=== PATIENT | male | born 1980 | race Caucasian/White ===

== ENCOUNTER 2019-02-09 11:20 | Inpatient (IN) ==
--- OUTSIDE RECORDS SUMMARY | 2019-02-09 11:24 | External Medical Summary | Continuity of Care Document ---
:1980 Author Name Radha Man Address Unavailable Unavailable , Care Team Providers Name Role Phone Isidra RAND Unavailable [email or web address] PCP, NO Unavailable Unavailable Problems Active medical history not documented Allergies and Adverse Reactions Allergy history not documented Medications Medications not documented Procedures Procedures not documented Immunizations Immunizations not documented Plan of Treatment Planned Observations Planned Goals not documented Results No Known Results Results not documented Encounters Appointment; Esther Miner DO 11-Jul-2014 10:00 Encounter Diagnosis: Problem not documented
[2019-02-09 13:00] LABS: Basophils # (auto) 0.03 K/uL (0-0.2); Basophils % (auto) 0.5 %; Eosinophils % (auto) 1.6 %; Hematocrit (blood only) 42.9 % (42-52); Hemoglobin 15.2 g/dL (14.0-18.0); Immature Granulocytes # (auto) 0.06 K/uL (0.00-0.02); Lymphocytes # (auto) 1.38 K/uL (1.2-3.4); Lymphocytes % (auto) 21.9 %; Mean Corpuscular Hgb Conc 35.4 g/dL (32-36); Mean Corpuscular Volume 86.8 fL (80-100); Mean Platelet Volume 10.7 fL (7.4-10.4); Monocytes # (auto) 0.46 K/uL (0.11-0.59); Monocytes % (auto) 7.3 %; Neutrophils # (auto) 4.27 K/uL (1.4-6.5); Neutrophils % (auto) 67.7 %; Platelet Count 119 K/uL (130-400); RDW Coefficient of Variation 12.4 % (11.5-14.5); RDW Standard Deviation 39.7 fL (36.4-46.3); Red Blood Count 4.94 M/uL (4.7-6.1)
[2019-02-09 13:17] LABS: Albumin Level 3.9 gm/dl (3.4-5.0); BUN Creatinine Ratio 14.6 (10-20); Calcium 9.3 mg/dl (8.5-10.1); Est GFR (African American) 93.4; Est GFR (Non-African American) 80.6; Potassium 4.3 mmol/L (3.5-5.1)
[2019-02-09 13:23] LABS: Appearance Urine Clear (Clear); Bilirubin Urine Negative (Negative); Blood Urine Negative (Negative); Color Urine Yellow; Glucose Urine UA Negative (Negative); Ketones Urine Negative (Negative); Leukocyte Esterase Urine Negative (Negative); Nitrite Urine Negative (Negative); Protein Urine Negative (Negative); Specific Gravity Urine 1.023 (1.000-1.030); Urobilinogen Urine Negative (Negative); pH Urine 5.5 (4.5-7.5)
[2019-02-09 13:28] LABS: Albumin Globulin Ratio 1.1 (0.9-2); Bilirubin,Total 0.5 mg/dl (0.2-1); Globulin 3.5 gm/dl (2.5-4.0); Total Protein 7.4 gm/dl (6.4-8.2)
[2019-02-09 13:34] LABS: Acetaminophen < 2 ug/ml (10-30); Salicylate < 1.7 mg/dl (2.8-20)
[2019-02-09 13:54] LABS: Amphetamines+Metham, Urine Pos (Neg); Barbiturates, Urine Neg (Neg); Benzodiazepine, Urine Neg (Neg); Cocaine, Urine Neg (Neg); MDMA (Ecstacy), Urine Pos (Neg); Methadone, Urine Neg (Neg); Opiate, Urine Neg (Neg); Phencyclidine, Urine Neg (Neg)
--- NOTE | 2019-02-09 15:00 | Emergency Department Note ---
Entered by Vaishnavi Zheng acting as a scribe for Marcei West DO History of Present Illness General Chief complaint: Mental Health Evaluation Stated complaint: SUICIDAL Time Seen by Provider: 02/09/19 11:54 Source: patient History of Present Illness Provider complaint: Mental health evaluation Onset (ago): hour(s) Location: head Pain Consistency: + other (episode) Associated symptoms: + denies other symptoms (past attempts to hurt self, homicidal ideation) and + other (suicidal ideation) Treatments prior to arrival: none The patient is a 38 year old male who presents to the ED for an episode of a mental health evaluation that began a few hours ago. Per psychiatric case finishing machine adjuster, the patient has been having suicidal thoughts with a plan to buy a gun. The patient denies ever attempting to hurt himself in the past. The patient denies homicidal ideation. The patient states that he sees a psychiatrist and a therapist. The patient denies any recent changes in his medication. The patient states that he is not a smoker, but drinks alcohol on a social basis and is an everyday marijuana user. The patient denies any treatment prior to arrival. No prior inpatient psychiatric treatment. Home Medications Home Medications Medication Instructions Recorded Confirmed Type bupropion HCl 150 mg PO DAILY 02/09/19 02/09/19 History dextroamphetamine-amphetamine 20 mg PO BID 02/09/19 02/09/19 History [Adderall] fluoxetine 60 mg PO DAILY 02/09/19 02/09/19 History Allergies Allergy/AdvReac Type Severity Reaction Status Date / Time No Known Allergies Allergy Unverified 02/09/19 13:05 Past Med/Surg History Medical History Depression (Chronic) Social History Preferred Language: Montenegrin Communication Ability: Effective Beliefs That Will Affect Care: None Feels Safe at Home: Yes Smoking Status: Never smoker Hx Alcohol Use: Yes Hx Substance Use: Yes substance use type: marijuana Review of Systems See HPI for pertinent positives & negatives. and A total of 10 systems reviewed and were otherwise negative Physical Exam Vital Signs Vital Signs - 24 hr 02/09/19 11:32 02/09/19 13:59 Temperature 37.0 C Temperature Source Oral Sepsis Recent Fever Within 48 Hours No Sepsis New/Unexplained Change in Mental Status No Sepsis Action Taken by Nursing No Action Required Pulse Rate 103 H Pulse Rate [Finger] 89 Pulse Rhythm Regular Pulse Strength Normal Respiratory Rate 20 17 Respiratory Effort / Characteristics Non-Labored Spontaneous Respiratory Depth Normal Respiratory Pattern Regular Blood Pressure 151/101 H Blood Pressure [Left Arm] 142/90 H Blood Pressure Mean 117 Blood Pressure Mean [Left Arm] 107 Blood Pressure Position Sitting Pulse Oximetry 98 98 Oxygen Delivery Method Room Air Room Air GENERAL: alert, well appearing, well nourished, no distress, non-toxic EYE EXAM: normal conjunctiva, PERRL and EOM's grossly intact OROPHARYNX: no exudate, no erythema, lips, buccal mucosa, and tongue normal and mucous membranes are moist NECK: supple, no nuchal rigidity, no adenopathy, non-tender LUNGS: Clear to auscultation. Normal chest wall mechanics, no w/r/r HEART: no murmurs, S1 normal and S2 normal ABDOMEN: abdomen soft, non-tender, normo-active bowel sounds, no masses, no rebound or guarding. BACK: Back is symmetrical on inspection and there is no deformity, no midline tenderness, no CVA tenderness. SKIN: no rashes and no bruising UPPER EXTREMITIES: upper extremities are grossly normal. FROM, nml pulses b/l. LOWER EXTREMITIES: No pitting edema. FROM, nml pulses b/l. NEURO EXAM: Normal sensorium, cranial nerves II-XII grossly intact, normal speech, no gross weakness of arms, no gross weakness of legs. Course 1218: Past medical records reviewed. The patient was evaluated in room A5. A complete history and physical exam was performed. 1630: Patient seen and evaluated by psychiatric case finishing machine adjuster and referred to 3 S. 3 S. has evaluated the patient and will except there on the 201. 201 signed by me. Medical Decision Making Differential Diagnosis Differential diagnosis: Etiologies such as psychiatric disorder, infection, hypoglycemia, electrolyte abnormalities, cardiac sources, intracerebral event, toxicological process, neurologic disorder, as well as others were entertained. Medical Records Attestation: I reviewed the patient's medical records. Home Medications Current Medication List: was personally reviewed by me Laboratory Data Attestation: I reviewed the patient's lab results. Result diagrams: 02/09/19 12:41 02/09/19 12:41 Lab Results 02/09/19 02/09/19 02/09/19 Range/Units 12:41 12:41 12:41 WBC 6.30 (4.8-10.8) K/uL RBC 4.94 (4.7-6.1) M/uL Hgb 15.2 (14.0-18.0) g/dL Hct 42.9 (42-52) % MCV 86.8 (80-100) fL MCH 30.8 (25-34) pg MCHC 35.4 (32-36) g/dL RDW Std Deviation 39.7 (36.4-46.3) fL RDW Coeff of Gopi 12.4 (11.5-14.5) % Plt Count 119 L (130-400) K/uL MPV 10.7 H (7.4-10.4) fL Immature Gran % (Auto) 1.0 % Neut % (Auto) 67.7 % Lymph % (Auto) 21.9 % [place] % (Auto) 7.3 % Eos % (Auto) 1.6 % Baso % (Auto) 0.5 % Immature Gran # (Auto) 0.06 H (0.00-0.02) K/uL Neut # (Auto) 4.27 (1.4-6.5) K/uL Lymph # (Auto) 1.38 (1.2-3.4) K/uL [place] # (Auto) 0.46 (0.11-0.59) K/uL Eos # (Auto) 0.10 (0-0.5) K/uL Baso # (Auto) 0.03 (0-0.2) K/uL Sodium 140 (136-145) mmol/L Potassium 4.3 (3.5-5.1) mmol/L Chloride 106 (98-107) mmol/L Carbon Dioxide 27 (21-32) mmol/L Anion Gap 7.0 (3-11) BUN 17 (7-18) mg/dl Creatinine 1.14 (0.6-1.4) mg/dl Est Cr Clr Drug Dosing 86.0 ml/min Est GFR ( Amer) 93.4 Est GFR (Non-Af Amer) 80.6 BUN/Creatinine Ratio 14.6 (10-20) Glucose 90 (70-99) mg/dl Calcium 9.3 (8.5-10.1) mg/dl Total Bilirubin 0.5 (0.2-1) mg/dl AST 14 L (15-37) U/L ALT 25 (12-78) U/L Alkaline Phosphatase 95 (45-117) U/L Total Protein 7.4 (6.4-8.2) gm/dl Albumin 3.9 (3.4-5.0) gm/dl Globulin 3.5 (2.5-4.0) gm/dl Albumin/Globulin Ratio 1.1 (0.9-2) TSH 0.674 (0.300-4.500) uIu/ml Urine Color Urine Appearance (Clear) Urine pH (4.5-7.5) Ur Specific [place] (1.000-1.030) Urine Protein (Negative) Urine Glucose (UA) (Negative) Urine Ketones (Negative) Urine Blood (Negative) Urine Nitrite (Negative) Urine Bilirubin (Negative) Urine Urobilinogen (Negative) Ur Leukocyte Esterase (Negative) Salicylates < 1.7 L (2.8-20) mg/dl Urine Opiates Screen (Neg) Ur Methadone, Qual (Neg) Acetaminophen < 2 L (10-30) ug/ml Urine Barbiturates (Neg) Ur Phencyclidine (PCP) (Neg) U Amphetamin/Meth Scrn (Neg) MDMA (Ecstasy) Screen (Neg) U Benzodiazepines Scrn (Neg) Ur Cocaine Metabolite (Neg) U Marijuana (THC) Screen (Neg) Ethyl Alcohol mg/dL (0-3) mg/dl 02/09/19 02/09/19 02/09/19 Range/Units 12:41 13:15 13:15 WBC (4.8-10.8) K/uL RBC (4.7-6.1) M/uL Hgb (14.0-18.0) g/dL Hct (42-52) % MCV (80-100) fL MCH (25-34) pg MCHC (32-36) g/dL RDW Std Deviation (36.4-46.3) fL RDW Coeff of Gopi (11.5-14.5) % Plt Count (130-400) K/uL MPV (7.4-10.4) fL Immature Gran % (Auto) % Neut % (Auto) % Lymph % (Auto) % [place] % (Auto) % Eos % (Auto) % Baso % (Auto) % Immature Gran # (Auto) (0.00-0.02) K/uL Neut # (Auto) (1.4-6.5) K/uL Lymph # (Auto) (1.2-3.4) K/uL [place] # (Auto) (0.11-0.59) K/uL Eos # (Auto) (0-0.5) K/uL Baso # (Auto) (0-0.2) K/uL Sodium (136-145) mmol/L Potassium (3.5-5.1) mmol/L Chloride (98-107) mmol/L Carbon Dioxide (21-32) mmol/L Anion Gap (3-11) BUN (7-18) mg/dl Creatinine (0.6-1.4) mg/dl Est Cr Clr Drug Dosing ml/min Est GFR ( Amer) Est GFR (Non-Af Amer) BUN/Creatinine Ratio (10-20) Glucose (70-99) mg/dl Calcium (8.5-10.1) mg/dl Total Bilirubin (0.2-1) mg/dl AST (15-37) U/L ALT (12-78) U/L Alkaline Phosphatase (45-117) U/L Total Protein (6.4-8.2) gm/dl Albumin (3.4-5.0) gm/dl Globulin (2.5-4.0) gm/dl Albumin/Globulin Ratio (0.9-2) TSH (0.300-4.500) uIu/ml Urine Color Yellow Urine Appearance Clear (Clear) Urine pH 5.5 (4.5-7.5) Ur Specific [place] 1.023 (1.000-1.030) Urine Protein Negative (Negative) Urine Glucose (UA) Negative (Negative) Urine Ketones Negative (Negative) Urine Blood Negative (Negative) Urine Nitrite Negative (Negative) Urine Bilirubin Negative (Negative) Urine Urobilinogen Negative (Negative) Ur Leukocyte Esterase Negative (Negative) Salicylates (2.8-20) mg/dl Urine Opiates Screen Neg (Neg) Ur Methadone, Qual Neg (Neg) Acetaminophen (10-30) ug/ml Urine Barbiturates Neg (Neg) Ur Phencyclidine (PCP) Neg (Neg) U Amphetamin/Meth Scrn Pos H (Neg) MDMA (Ecstasy) Screen Pos H (Neg) U Benzodiazepines Scrn Neg (Neg) Ur Cocaine Metabolite Neg (Neg) U Marijuana (THC) Screen Pos H (Neg) Ethyl Alcohol mg/dL < 3.0 (0-3) mg/dl Blood Pressure Blood Pressure Findings: Elevated blood pressure Blood Pressure Disposition: Referred to patients primary care provider MDM Narrative Patient referred here by therapist after worsening depression and now suicidal ideation with plan. 201 signed. Patient's labs reassuring. No prior platelet level to compare to. Patient with mildly low platelets here today. No history of bleeding dyscrasia and I do not feel this is clinically significant with today's evaluation. I did discuss follow-up with family doctor. Patient's urine drug screen positive for marijuana which patient admits to, and the 2 other abnormalities are likely false positive secondary to patient's current m edications. Patient calm and cooperative throughout. Patient admitted to 3 S. Impression & Plan Suicidal ideation, Depression, Marijuana use, Thrombocytopenia Discharge Plan Visit Data Chief Complaint: Mental Health Evaluation Stated Complaint: SUICIDAL ED Provider: Marcie West Discharge Problem: Suicidal ideation, Depression, Marijuana use, Thrombocytopenia Discharge Problem: Depression Qualifiers: Depression Type: major depressive disorder Major depression recurrence: recurrent Active/Remission status: currently active Major depression episode severity: moderate Qualified Code(s): F33.1 - Major depressive disorder, recurrent, moderate The dakshaibe's documentation has been prepared under my direction and personally reviewed by me in its entirety. I confirm that the note above accurately reflects all work, treatment, procedures, and medical decision making performed by me.
[2019-02-09] MEDS ORDERED: SODIUM CHLORIDE 0.65% NA SOLN 45 ML (OCEAN) PRN (16:29)
[2019-02-09] MEDS ORDERED: BISMUTH SUBSALICYLATE PER ML OMNICELL CHARGE PO PRN (16:29)
[2019-02-09] MEDS ORDERED: ALUMINUM/MAGNESIUM SUSP 30 ML UDC PO PRN (16:29)
[2019-02-09] MEDS ORDERED: MAGNESIUM HYDROXIDE SUSP 30 ML UDC PO PRN (16:29)
[2019-02-09] MEDS ORDERED: ACETAMINOPHEN 325 MG TAB PO PRN (16:29)
[2019-02-10] MEDS ORDERED: FLUOXETINE HCL 20 MG CAP PO SCH (09:00)
[2019-02-10] MEDS: BuPROPion SR 150 MG TABCR PO SCH (10:03)
[2019-02-10] MEDS: AMPHETAMINE ASP/SULF/DEXTRAMPH 20 MG TAB PO SCH ×2 (13:22→13:26)
--- NOTE | 2019-02-10 14:30 | History & Physical ---
Date of Service February 10, 2019 Impression / Recommendations (1) Suicidal ideation: 02/10/19 -The patient reports that he is continuing to experience suicidal thoughts. He does not currently have suicidal intent. However, he notes that he does not feel that he is able to contract for safety outside of the hospital and continues to require the inpatient level of care for safety. -Suicide precautions. Present on Admission?: Yes (2) Depression: 02/10/19 -The patient reports that his depression is currently "no better or and no worse" than previously. His affect, however, is somewhat brighter than it was yesterday. -The patient has been referred for group, activity, and educational treatment and services, and he is being encouraged to actively processed the various psychosocial issues that are felt to be contributing to his emotional distress. -The patient has failed to respond to a number of treatments for depression, including individual therapy and chemotherapy. He has had genetic testing at that indicates that he may respond to standard dosages of almost all antidepressant medications, and a number of these medications have already been tried at standard dosages, or to the highest tolerated dosage. He is also not responded favorably to the application of adjunctive medications to his antidepressant regimen. A review of his medication history indicates that he has not yet been tried on a selective norepinephrine reuptake inhibitor such as venlafaxine. Currently, we will cross titrate fluoxetine (Prozac) with venlafaxine (Effexor). We will also continue bupropion XL 150 mg daily as an adjunct, and Adderall 20 mg twice a day for ADHD. -I coordinated the above treatment plan with the patient, who is in agreement. I explained that 1 of the reasons for hospitalization was to make medication changes in a safe location, given his active suicidality. The patient's response was to say "I do not want to be here, but I realize that it is necessary." -I talked to the patient today about ECT as a possible treatment, given his long-standing history of depression that has, to date, been largely unresponsive to multiple different interventions. Active/Remission status: currently active Depression Type: major depressive disorder Major depression episode severity: moderate Major depression recurrence: recurrent Qualified Code(s): F33.1 - Major depressive disorder, recurrent, moderate Present on Admission?: Yes (3) Thrombocytopenia: 02/10/19 -The patient's platelet count at admission was 119,000/mcL, with normal level s above 300,000/mcL. The patient does not have a known history of thrombocytopenia. This may be possibly a side effect of Prozac, and may also be a side effect of venlafaxine. -A review of systems does not reveal recent signs of bleeding or easy bruising. The plan will be to continue to monitor his platelet count periodically. Present on Admission?: Yes Inventory Assets Strengths: Supportive . Supportive friends. (His family of origin means to be supportive, but is unable to be supportive in a way that the patient finds helpful.) Intelligence. Motivated to treatment and recovery. Needs: Recovery from treatment resistant, recurrent major depression. Resolution of suicidal ideation with plan. Ability to reliably contract for safety in the community. Risk Factors Assessment Male: Yes : Yes Do You Have Access To A Gun?: No (But the patient knows where he would be able to purchase one.) Health Problems: No Mental Health Diagnoses: Yes Substance Use Disorders: No Previous Attempt: No Family History of Suicide: No Previous Psychiatric Hospitalization: No Hopelessness: No Smoker: No Protective Factors Assessment Anglican Beliefs: No : Yes Responsible for Young Children: No Employed: Yes ([employer]) Stable Relationships: Yes Supportive Family: Yes (The patient's is quite supportive. The patient's family of origin, while certainly well intended, is unable to be supportive in a way that the patient finds helpful.) Good Rapport with Provider: Yes Absence of Any Risk Factors Above: No Psychiatric History Identifying Data ASIA MADERA is a 38-year-old Male who currently lives in [place] with his and 2 teenaged stepchildren. He has a history of recurrent major depression and ADHD. The patient was admitted on 02/09/19 16:55 on a 201 voluntary agreement after he presented to my outpatient office and told me that he was having suicidal thoughts with a plan to either purchase a gun and shoot himself, or kill himself by asphyxiation with natural gas. Chief Complaint "Depression.". History of Present Illness The patient is a 38-year-old man with a long history of major depression, moderate to severe, without psychotic features and with only partial recovery between episodes. He has been followed by the undersigned outpatient therapy for several years and his depression has been very poorly responsive to a number of psychiatric medications which have included sertraline, fluoxetine, bupropion, fluoxetine, aripiprazole (as an adjunct) and, more recently, Adderall because of the patient's long-standing history of difficulty focusing, concentrating, avoiding unnecessary distraction, and tasks. The symptoms reportedly predated and have occurred independent of his symptoms of depression. In addition, the patient has been offered transcranial magnetic stimulation, but has declined it because of the considerable time commitment. 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 As the patient, himself, puts it, it is not clear if the patient's dissatisfaction with his life and his "quiet desperation" is a function of his depression, or if his depression is largely attributable to his general dissatisfaction with the circumstances in which he finds himself. The patient reportedly was fairly close to completing an undergraduate degree when he dropped out of college, but has not been motivated to return to college and finished his degree. He is dissatisfied with his job, but has thus far failed to apply for other jobs, nor has he been able to tell me that he has given serious thought to what other jobs he might prefer or consider. He often has a fantasy of leaving his and two adolescent stepchildren and moving into a "bachelor's apartment" which would allow him to return home from work and be solitary and free of additional responsibilities. Recently, the patient requested a medical excuse for a period of 2 weeks during which she was to have had a trial separation from his (without necessarily telling her that that was his intent). During the proposed separation, he was either to have visited his parents and a brother in [place], or visit friends and [place], and, again, his goal had been to see how he felt when removed from the strains of his home life and his job. He decided against visiting his parents because they tend to be hyper episcopalian and, each time he tries to tell them about how he is feeling they responded by advising him to find solutions through the Gnosticism Buddhism. In the end, he also decided not to visit his friends and, instead, spent the time at home, largely in bed and idle. Towards of the end of the 2 weeks, he was aware that he was feeling "no better and no worse," but also noted that what had previously been fleeting thoughts of suicide had become progressively more intense and intrusive. The final 2 days of his leave from work, he began to seriously contemplate suicide, and reported them to me, as above, shortly thereafter at the time of his previously scheduled outpatient appointment. He initially told me that his suicidal thoughts included thoughts of going to [employer], purchasing a rifle, and shooting himself in the [employer] parking lot --although he added that he would not actually shoot himself in the parking lot because he understood that that might have a traumatic effect on other people. He is also considered killing himself with natural gas. At the same time, the patient acknowledged some ambivalence regarding actual suicidal intent. However, of note, today he tells me that after he arrived in the emergency room yesterday afternoon (from my office) he said that "in a way" he regretted that he did not take the opportunity to simply kill himself without coming to the hospital, although, again, he stepped back from that statement and said "but I probably would have done that. I do want to try to get help and get better. Past Psychiatric History Previous Psych History: This is the patient's first psychiatric hospitalization. He has no history of actual suicidal intent. However, he has a very long history of recurrent major depression, with only partial improvement between episodes. There is no history of any psychotic features. Patient also has a history of symptoms of ADHD and is being treated with stimulant medication. He reports that stimulant medication has helped him concentrate, focus, and be able to complete tasks without becoming distracted or derailed by his depressed mood. He does not, however, feel that stimulant medications (in his case Adderall) has been particularly effective in helping to relieve his symptoms of depression. Current Psychiatric Diagnosis: Major Depressive Disorder. Outpatient Services: Currently in outpatient treatment with the undersigned at the offices of [facility] in [place]. He is seen approximately once a week. He is also in individual psychotherapy, also at [facility]. Previous Psych Admissions: None. This is the patient's first psychiatric hospitalization. Do You Have Access To A Gun?: No (But the patient knows where he would be able to purchase one.) History of Previous Suicide Attempt: No Describe Attempts in the Past: Ideations, no hx of attempts Past Medication Trials: The patient's current medications, at the time of his admission here, were Prozac 60 mg a day, Adderall 20 mg twice a day and bupropion XL 150 mg daily. (He had not responded to bupropion XL at 300 mg and noted some increased anxiety at that level.) In the past, the patient has taken sertraline, paroxetine, and several other antidepressant medications (no SNRI), as well as adjunctive medications including aripiprazole and risperidone, each without any marketed improvement in his depression. Past Head Trauma/Neuro History History of Concussion/Seizure: No Allergies Allergy/AdvReac Type Severity Reaction Status Date / Time No Known Allergies Allergy Unverified 02/09/19 13:05 Home Medications Home Medications Medication Instructions Recorded Confirmed Type bupropion HCl 150 mg PO DAILY 02/09/19 02/09/19 History dextroamphetamine-amphetamine 20 mg PO BID 02/09/19 02/09/19 History [Adderall] fluoxetine 60 mg PO DAILY 02/09/19 02/09/19 History Family History Family History of: None Family Mental Health History Comment: brother likely on the spectrum. The patient was raised as a Gnosticism in [place], as well as his . Both the patient and his have left the Gnosticism Buddhism, a circumstance that has caused a certain amount of difficulty with the patient's devoutly episcopalian parents. The patient expresses frustration and disappointment that he is unable to rely on his family of origin support as he faces depression and various other life difficulties, as noted above. This is because his parents reportedly have a single approach to each problem brought to them by others. That one single recommended solution always involves holiness and a return to adherent [facility]. Recently, the patient received an email that was purportedly written to him by his brother. The email spoke of how he, the brother, had been distressed and had found that turning to the [employer] had greatly helped him. However, of the email had signature comments that the patient knew to be characteristic of his mother, and he believes that his mother simply used the brother's email to send the patient the same message that she, herself, had sent him. Alcohol History Hx of Alcohol Use Over the Past 12 Months: Yes AUDIT Total Score: 1 Smoking Use Have You Smoked or Used Tobacco Products in the Last 30 Days: No Smoking Status: Never smoker Substance History Hx of Prescription Med Misuse Over the Past 12 Months: No Hx of Over the Counter Med Misuse Over the Past 12 Months: No Hx of Inhalent Misuse Over the Past 12 Months: No Hx of Organic Substance Use Over the Past 12 Months: Yes (occasionnal marijuana) Hx of Illegal Substances/Street Drug Use Over Past 12 Months: No Problems as a Result of Past Substance Use: None Identified Personal History Living Arrangements: Home Highest Grade Completed: High School Graduate Highest Grade Completed Comment: Working at [employer], 2 yrs. Was in college for a couple yrs, was close to associates degree in IT. Employment Status: Ceramic Tiler Employed Marital Status: Number Of Children: 2 (Stepchildren) Beliefs That Will Affect Care: None Current Legal Problems: No Hx Legal Problems: No Hx Traumatic Life Events: No Patient History Medical History Depression (Chronic) Social History Preferred Language: Hungarian Communication Ability: Effective Beliefs That Will Affect Care: None Feels Safe at Home: Yes Smoking Status: Never smoker Hx Alcohol Use: Yes Hx Substance Use: Yes substance use type: marijuana Review of Systems Review of Systems: All systems reviewed & are unremarkable except as noted in HPI & below The somatic history, review of system, and physical examination completed by Dr. Marcie West in the emergency department has been reviewed and is approved for purposes of medical clearance to the behavioral health unit. Physical Exam Psychiatric: Orientation: oriented x 3 Apperance: appropriately dressed, appropriately groomed and appeared stated age Eye Contact: + fair eye contact Motor Behavior: no abnormal motor movements Speech: normal rate/rhythm/volume of speech Affect: + depressed affect Mood: + depressed mood Thought Process: linear/logical thought process Thought Content: reality based without delusions The patient reports ongoing thoughts of suicide, but contracts for safety in the hospital and assures me that he will not make any attempts at self-harm here. Homicidal Thoughts: denies homicidal thoughts Hallucinations: no auditory hallucinations Cognition: recent memory grossly intact, remote memory grossly intact, attention grossly intact and language grossly intact Estimated Intelligence: + above average estimated intelligence Insight: + fair insight Judgement: + impaired judgement Vital Signs (Past 24 Hours): Last Vital Signs Temp 36.6 C 02/10/19 06:46 Pulse 81 02/10/19 06:46 Resp 18 02/10/19 06:46 BP 141/81 H 02/10/19 06:46 Pulse Ox 98 02/09/19 13:59 Results & Data Current Inpatient Medications Current Inpatient Medications: Current Inpatient Medications Acetaminophen (Tylenol) 650 mg PO Q4H PRN PRN Reason: Headache or Minor Fever Stop: 03/11/19 16:28 Al Hydrox/Mg Hydrox/Simethicone (Maalox) 30 ml PO Q4H PRN PRN Reason: GI Upset Stop: 03/11/19 16:28 Amphetamine/Dextroamphetamine (Adderall) 20 mg PO [id number] [facility] Stop: 02/24/19 06:59 Last Admin: 02/10/19 13:26 Dose: 20 mg Documented by: Bismuth Subsalicylate (Kaopectate) 15 ml PO PRN PRN PRN Reason: Loose Stool Stop: 03/11/19 16:28 Bupropion HCl (Wellbutrin-Sr) 150 mg PO QAM [facility] Stop: 03/12/19 08:59 Last Admin: 02/10/19 10:03 Dose: 150 mg Documented by: Fluoxetine HCl (Prozac) 40 mg PO DAILY [facility] Stop: 03/12/19 08:59 Last Admin: 02/10/19 10:03 Dose: 40 mg Documented by: Hydroxyzine HCl (Vistaril) 25 mg PO Q4H PRN PRN Reason: Anxiety Stop: 03/11/19 16:28 Hydroxyzine HCl (Vistaril) 50 mg PO HSZ PRN PRN Reason: Insomnia Stop: 03/11/19 16:28 Magnesium Hydroxide (Milk Of Magnesia) 30 ml PO DAILY PRN PRN Reason: Heartburn Stop: 03/11/19 16:28 Sodium Chloride ([place] Nasal) 1 - 2 sprays NA PRN PRN PRN Reason: Nasal Dryness/Congestion Stop: 03/11/19 16:28 CPT Code CPT Code Initial Hospital Care: [id number]
--- NOTE | 2019-02-11 08:49 | Psychiatric Progress Note ---
Date of Service February 11, 2019 Impression / Recommendations Impression 38-year-old male admitted voluntarily for inpatient psychiatric treatment upon recommendation from his outpatient psychiatrist, Dr. Stewart. Pt had disclosed worsening depression with accompanied SI and plan to purchase a firearm and end his life in the parking lot. Pt was willing for medication adjustments to target low mood and low energy. Fluoxetine is being tapered and venlafaxine ER was initiated. Pt was given a 75mg dose this morning, will continue to titrate as tolerated to reasonably therapeutic dosing. Pt remains on home doses of bupropion 150mg and Adderall 20mg BID as these have been somewhat effective. Pt participated in a family meeting with his this afternoon to review discharge planning. Given patient's long history of depression, highly lethal suicide plan, and clearly orchestrated ideas to end his life - ongoing inpatient psychiatric treatment is recommended until patient can adequately contract for safety; as he remains at high risk of harm to self if discharged prematurely. (1) Suicidal ideation: 02/10/19 -The patient reports that he is continuing to experience suicidal thoughts. He does not currently have suicidal intent. However, he notes that he does not feel that he is able to contract for safety outside of the hospital and continues to require the inpatient level of care for safety. -Suicide precautions. 02/11 - SI is ongoing, though mildly improved - Remains unable to contract for safety outside of the hospital setting (2) Depression: 02/10/19 -The patient reports that his depression is currently "no better or and no worse" than previously. His affect, however, is somewhat brighter than it was yesterday. -The patient has been referred for group, activity, and educational treatment and services, and he is being encouraged to actively processed the various psychosocial issues that are felt to be contributing to his emotional distress. -The patient has failed to respond to a number of treatments for depression, including individual therapy and chemotherapy. He has had genetic testing at that indicates that he may respond to standard dosages of almost all antidepressant medications, and a number of these medications have already been tried at standard dosages, or to the highest tolerated dosage. He is also not responded favorably to the application of adjunctive medications to his antidepressant regimen. A review of his medication history indicates that he has not yet been tried on a selective norepinephrine reuptake inhibitor such as venlafaxine. Currently, we will cross titrate fluoxetine (Prozac) with venlafaxine (Effexor). We will also continue bupropion XL 150 mg daily as an adjunct, and Adderall 20 mg twice a day for ADHD. -I coordinated the above treatment plan with the patient, who is in agreement. I explained that 1 of the reasons for hospitalization was to make medication changes in a safe location, given his active suicidality. The patient's response was to say "I do not want to be here, but I realize that it is necessary." -I talked to the patient today about ECT as a possible treatment, given his long-standing history of depression that has, to date, been largely unresponsive to multiple different interventions. 02/11 - Continue medication adjustments outlined above - Pt received 75mg of venlafaxine ER this morning, will continue to titrate as tolerate - Fluoxetine was discontinued after 20mg dose received this morning - Continue bupropion and Adderall as above - Family meeting with completed - Assist patient with recognition of "red flags" and development of a concrete safety plan (3) Thrombocytopenia: 02/10/19 -The patient's platelet count at admission was 119,000/mcL, with normal levels above 300,000/mcL. The patient does not have a known history of thrombocytopenia. This may be possibly a side effect of Prozac, and may also be a side effect of venlafaxine. -A review of systems does not reveal recent signs of bleeding or easy bruising. The plan will be to continue to monitor his platelet count periodically. Inventory Assets Strengths: Supportive . Supportive friends. (His family of origin means to be supportive, but is unable to be supportive in a way that the patient finds helpful.) Intelligence. Motivated to treatment and recovery. Needs: Recovery from treatment resistant, recurrent major depression. Resolution of suicidal ideation with plan. Ability to reliably contract for safety in the community. Risk Factors Assessment Male: Yes : Yes Do You Have Access To A Gun?: No (But the patient knows where he would be able to purchase one.) Health Problems: No Mental Health Diagnoses: Yes Substance Use Disorders: No Previous Attempt: No Family History of Suicide: No Previous Psychiatric Hospitalization: No Hopelessness: No Smoker: No Protective Factors Assessment Sabianist Beliefs: No : Yes Responsible for Young Children: No Employed: Yes ([employer]) Stable Relationships: Yes Supportive Family: Yes (The patient's is quite supportive. The patient's family of origin, while certainly well intended, is unable to be supportive in a way that the patient finds helpful.) Good Rapport with Provider: Yes Absence of Any Risk Factors Above: No Interval History Identifying Information ASIA MADERA is a 38-year-old Male who currently lives in [place] with his and 2 teenaged stepchildren. He has a history of recurrent major depression and ADHD. The patient was admitted on 02/09/19 16:55 on a 201 voluntary agreement after he presented to my outpatient office and told me that he was having suicidal thoughts with a plan to either purchase a gun and shoot himself, or kill himself by asphyxiation with natural gas. Chief Complaint "No, things are fine. I feel like it's just about the same, no big difference. But I've also been depressed for a long time." Review of Systems Notes Constitutional: denied Cardiovascular: denied Respiratory: denied Gastrointestinal: denied Neurological: denied Psychiatric: denies symptoms other than stated above Total of at least 10 systems reviewed, pertinent positives as above and in HPI. Sleep Information Total Hours of Sleep: 6.25 Sleep Comments: requested and was provided with ear plugs to help decrease his roommates loud snoring sounds Meal Information Percent Meal Consumed - Breakfast: 100 Percent Meal Consumed - Lunch: 50 Percent Meal Consumed - Dinner: 100 Subjective Subjective Patient was seen & assessed and interval progress reviewed during report with nursing and social work. Staff reports the patient received a visit from his last evening, they are scheduled for a family meeting this afternoon. He has continued to report depressed mood and low energy. Pt was seen today to assess progress since admission. Pt states he is doing well, but does not feel he has noticed any significant changes in mood, SI, or changes in stressors. Pt does admit to feeling he is "out of the spiral I was in", but continues to endorse SI and low mood. Motivation remains an issue for him, but he states this has been building up for years. Pt feels his family meeting was "good", and states he felt it was beneficial for his to receive a "clearer picture" of his day-to-day struggles. Pt denies any significant side effects from medication adjustments. He denies other needs or concerns at this time. Physical Exam Psychiatric Orientation: alert, oriented x 3 and cooperative Apperance: appropriately dressed (casually, in t-shirt and pajama pants) and appropriately groomed Wearing corrective lenses, adequate hygiene Eye Contact: good eye contact Motor Behavior: steady gait and station and no abnormal motor movements Speech: normal rate/rhythm/volume of speech Affect: + depressed affect Mood: + depressed mood "I feel I'm out of the spiral, but still very depressed" Thought Process: goal directed thought process and clear/coherent thought process Thought Content: reality based without delusions, + hopelessness and + worthlessness Suicidal Thoughts: + reports suicidal thoughts (persistent, but mildly less severe) Homicidal Thoughts: denies homicidal thoughts Hallucinations: no auditory hallucinations and no visual hallucinations Cognition: remote memory grossly intact, attention grossly intact and language grossly intact Estimated Intelligence: consistent with education level Insight: + fair insight Judgement: + fair judgement Vital Signs (Past 24 Hours) Last Vital Signs Temp 36.8 C 02/11/19 06:30 Pulse 89 02/11/19 06:30 Resp 18 02/11/19 06:30 BP 141/77 H 02/11/19 06:30 Pulse Ox 98 02/09/19 13:59 Results & Data Current Inpatient Medications Current Inpatient Medications: Current Inpatient Medications Acetaminophen (Tylenol) 650 mg PO Q4H PRN PRN Reason: Headache or Minor Fever Stop: 03/11/19 16:28 Al Hydrox/Mg Hydrox/Simethicone (Maalox) 30 ml PO Q4H PRN PRN Reason: GI Upset Stop: 03/11/19 16:28 Amphetamine/Dextroamphetamine (Adderall) 20 mg PO [id number] [facility] Stop: 02/24/19 06:59 Last Admin: 02/10/19 13:26 Dose: 20 mg Documented by: Bismuth Subsalicylate (Kaopectate) 15 ml PO PRN PRN PRN Reason: Loose Stool Stop: 03/11/19 16:28 Bupropion HCl (Wellbutrin-Sr) 150 mg PO QAM [facility] Stop: 03/12/19 08:59 Last Admin: 02/10/19 10:03 Dose: 150 mg Documented by: Fluoxetine HCl (Prozac) 20 mg PO QAM [facility] Stop: 02/11/19 09:01 Hydroxyzine HCl (Vistaril) 25 mg PO Q4H PRN PRN Reason: Anxiety Stop: 03/11/19 16:28 Hydroxyzine HCl (Vistaril) 50 mg PO HSZ PRN PRN Reason: Insomnia Stop: 03/11/19 16:28 Magnesium Hydroxide (Milk Of Magnesia) 30 ml PO DAILY PRN PRN Reason: Heartburn Stop: 03/11/19 16:28 Sodium Chloride ([place] Nasal) 1 - 2 sprays NA PRN PRN PRN Reason: Nasal Dryness/Congestion Stop: 03/11/19 16:28 Venlafaxine HCl (Effexor Extended Release) 37.5 mg PO QAM [facility] Stop: 02/11/19 09:01 Venlafaxine HCl (Effexor Extended Release) 75 mg PO QAM [facility] Stop: 03/14/19 08:59 Post Discharge Appointments Primary Care Physician Name Of Family Doctor: none Therapist Name of Therapist: Mary Ayannah, Wednesday 5pm, Image Editor Name of Image Editor: Denies CPT Code CPT Code 15012 (1) Depression Active/Remission status: currently active Depression Type: major depressive disorder Major depression episode severity: moderate Major depression recurrence: recurrent Qualified Code(s): F33.1 - Major depressive disorder, recurrent, moderate
[2019-02-11] MEDS ORDERED: VENLAFAXINE HCL XR 37.5 MG CAPXR PO SCH (09:00)
[2019-02-11] MEDS ORDERED: FLUOXETINE HCL 20 MG CAP PO SCH (09:00)
[2019-02-11] MEDS: AMPHETAMINE ASP/SULF/DEXTRAMPH 20 MG TAB PO SCH ×2 (09:30→14:55)
[2019-02-11] MEDS: BuPROPion SR 150 MG TABCR PO SCH (09:31)
--- NOTE | 2019-02-12 07:47 | Psychiatric Progress Note ---
Date of Service February 12, 2019 Impression / Recommendations Impression 38-year-old male admitted voluntarily for inpatient psychiatric treatment upon recommendation from his outpatient psychiatrist, Dr. Stewart. Pt had disclosed worsening depression with accompanied SI and plan to purchase a firearm and end his life in the parking lot. Pt was willing for medication adjustments to target low mood and low energy. Venlafaxine ER was titrated to a total dose of 150 mg starting today. Pt remains on home doses of bupropion 150mg and Adderall 20mg BID as these have been somewhat effective. Family meeting held with yesterday. Patient still requires an adequate safety plan and consideration of steps following discharge to avoid decompensation of mood and return of suicidal ideation. Given patient's long history of depression, highly lethal suicide plan, and clearly orchestrated ideas to end his life - ongoing inpatient psychiatric treatment is recommended until patient can adequately contract for safety; as he remains at high risk of harm to self if discharged prematurely. Patient does not yet feel that he can maintain safety outside of the hospital setting. (1) Suicidal ideation: 02/10/19 -The patient reports that he is continuing to experience suicidal thoughts. He does not currently have suicidal intent. However, he notes that he does not feel that he is able to contract for safety outside of the hospital and co ntinues to require the inpatient level of care for safety. -Suicide precautions. 02/11 - SI is ongoing, though mildly improved - Remains unable to contract for safety outside of the hospital setting 02/12 - No longer "constant" SI, but does not yet feel he would be able to maintain safety outside of the hospital setting (2) Depression: 02/10/19 -The patient reports that his depression is currently "no better or and no worse" than previously. His affect, however, is somewhat brighter than it was yesterday. -The patient has been referred for group, activity, and educational treatment and services, and he is being encouraged to actively processed the various psychosocial issues that are felt to be contributing to his emotional distress. -The patient has failed to respond to a number of treatments for depression, including individual therapy and chemotherapy. He has had genetic testing at that indicates that he may respond to standard dosages of almost all antidepressant medications, and a number of these medications have already been tried at standard dosages, or to the highest tolerated dosage. He is also not responded favorably to the application of adjunctive medications to his antidepressant regimen. A review of his medication history indicates that he has not yet been tried on a selective norepinephrine reuptake inhibitor such as venlafaxine. Currently, we will cross titrate fluoxetine (Prozac) with venlafaxine (Effexor). We will also continue bupropion XL 150 mg daily as an adjunct, and Adderall 20 mg twice a day for ADHD. -I coordinated the above treatment plan with the patient, who is in agreement. I explained that 1 of the reasons for hospitalization was to make medication changes in a safe location, given his active suicidality. The patient's response was to say "I do not want to be here, but I realize that it is necessary." -I talked to the patient today about ECT as a possible treatment, given his long-standing history of depression that has, to date, been largely unresponsive to multiple different interventions. 02/11 - Continue medication adjustments outlined above - Pt received 75mg of venlafaxine ER this morning, will continue to titrate as tolerate - Fluoxetine was discontinued after 20mg dose received this morning - Continue bupropion and Adderall as above - Family meeting with completed - Assist patient with recognition of "red flags" and development of a concrete safety plan 02/12 - Pt to receive an additional 75mg of venlafaxine this afternoon, will order 150mg dosing for tomorrow morning - Continue bupropion and Adderall as above - Pt still needs to work on developing a safety plan and ways to improve structure and routine day-to-day (3) Thrombocytopenia: 02/10/19 -The patient's platelet count at admission was 119,000/mcL, with normal levels above 300,000/mcL. The patient does not have a known history of thro mbocytopenia. This may be possibly a side effect of Prozac, and may also be a side effect of venlafaxine. -A review of systems does not reveal recent signs of bleeding or easy bruising. The plan will be to continue to monitor his platelet count periodically. Inventory Assets Strengths: Supportive . Supportive friends. (His family of origin means to be supportive, but is unable to be supportive in a way that the patient finds helpful.) Intelligence. Motivated to treatment and recovery. Needs: Recovery from treatment resistant, recurrent major depression. Resolution of suicidal ideation with plan. Ability to reliably contract for safety in the community. Risk Factors Assessment Male: Yes : Yes Do You Have Access To A Gun?: No (But the patient knows where he would be able to purchase one.) Health Problems: No Mental Health Diagnoses: Yes Substance Use Disorders: No Previous Attempt: No Family History of Suicide: No Previous Psychiatric Hospitalization: No Hopelessness: No Smoker: No Protective Factors Assessment Shinto Beliefs: No : Yes Responsible for Young Children: No Employed: Yes ([employer]) Stable Relationships: Yes Supportive Family: Yes (The patient's is quite supportive. The patient's family of origin, while certainly well intended, is unable to be supportive in a way that the patient finds helpful.) Good Rapport with Provider: Yes Absence of Any Risk Factors Above: No Interval History Identifying Information ASIA MADERA is a 38-year-old Male who currently lives in [place] with his and 2 teenaged stepchildren. He has a history of recurrent major depression and ADHD. The patient was admitted on 02/09/19 16:55 on a 201 volu ntary agreement after he presented to my outpatient office and told me that he was having suicidal thoughts with a plan to either purchase a gun and shoot himself, or kill himself by asphyxiation with natural gas. Chief Complaint "I feel better. Just better generally." Review of Systems Notes Constitutional: denied Cardiovascular: denied Respiratory: denied Gastrointestinal: denied Neurological: denied Psychiatric: denies symptoms other than stated above Total of at least 10 systems reviewed, pertinent positives as above and in HPI. Sleep Information Total Hours of Sleep: 5.5 Sleep Comments: requested and was provided with ear plugs to help decrease his roommates loud snoring sounds Meal Information Percent Meal Consumed - Breakfast: 50 Percent Meal Consumed - Lunch: 100 Percent Meal Consumed - Dinner: 50 Subjective Subjective Patient was seen & assessed and interval progress reviewed during report with nursing and social work. Staff reports patient had a meeting with his yesterday in which they were able to discuss some situations possibly contributing to patient's ongoing depression. It was discovered that patient is currently on probation at work, and does not feel fulfilled by his job. Patient was seen today to assess progress since admission. He reports feeling "better" in general, but has some difficulty providing specific areas in which she has noticed improvement. After some thought, patient is able to verbalize that he feels "more positive" and that "I am no longer constantly thinking about killing myself." Patient does admit to ongoing suicidal ideation, but feels that it is "invasive but manageable." Patient uses this description to describe his "normal" suicidal ideation as well. Patient verbalizes willingness for ongoing medication adjustments to target mood. He reports a specific goal today to work on his safety plan. At this time, patient states "I could maybe be safe to go home, my concern is how long will that last. I could see myself spiraling very quickly." Patient does not feel that he is yet at a point that he is able to contract for safety outside of the hospital setting. He denies other specific needs or concerns today, including effects from medication adjustments. Physical Exam Psychiatric Orientation: alert, oriented x 3 and cooperative Apperance: appropriately dressed (Casually wearing a T-shirt and pajama bottoms) and appropriately groomed Eye Contact: good eye contact Motor Behavior: steady gait and station and no abnormal motor movements Speech: normal rate/rhythm/volume of speech Affect: + depressed affect (Mildly improved from yesterday) Mood: + depressed mood ("May be more positive, but my mood is not necessarily better") Thought Process: goal directed thought process and clear/coherent thought process Thought Content: + hopelessness and + worthlessness Suicidal Thoughts: + reports suicidal thoughts (No longer constant, but still persistdescribed as "invasive but manageable) Homicidal Thoughts: denies homicidal thoughts Hallucinations: no auditory hallucinations and no visual hallucinations Cognition: remote memory grossly intact, attention grossly intact and language grossly intact Estimated Intelligence: consistent with education level Insight: + fair insight Judgement: + fair judgement Vital Signs (Past 24 Hours) Last Vital Signs Temp 36.7 C 02/12/19 06:49 Pulse 102 H 02/12/19 06:50 Resp 16 02/12/19 06:49 BP 142/76 H 02/12/19 06:50 Pulse Ox 98 02/09/19 13:59 Results & Data Current Inpatient Medications Current Inpatient Medications: Current Inpatient Medications Acetaminophen (Tylenol) 650 mg PO Q4H PRN PRN Reason: Headache or Minor Fever Stop: 03/11/19 16:28 Al Hydrox/Mg Hydrox/Simethicone (Maalox) 30 ml PO Q4H PRN PRN Reason: GI Upset Stop: 03/11/19 16:28 Amphetamine/Dextroamphetamine (Adderall) 20 mg PO [id number] [facility] Stop: 02/24/19 06:59 Last Admin: 02/11/19 14:55 Dose: 20 mg Documented by: Bismuth Subsalicylate (Kaopectate) 15 ml PO PRN PRN PRN Reason: Loose Stool Stop: 03/11/19 16:28 Bupropion HCl (Wellbutrin-Sr) 150 mg PO QAM [facility] Stop: 03/12/19 08:59 Last Admin: 02/11/19 09:31 Dose: 150 mg Documented by: Hydroxyzine HCl (Vistaril) 25 mg PO Q4H PRN PRN Reason: Anxiety Stop: 03/11/19 16:28 Hydroxyzine HCl (Vistaril) 50 mg PO HSZ PRN PRN Reason: Insomnia Stop: 03/11/19 16:28 Magnesium Hydroxide (Milk Of Magnesia) 30 ml PO DAILY PRN PRN Reason: Heartburn Stop: 03/11/19 16:28 Sodium Chloride ([place] Nasal) 1 - 2 sprays NA PRN PRN PRN Reason: Nasal Dryness/Congestion Stop: 03/11/19 16:28 Venlafaxine HCl (Effexor Extended Release) 75 mg PO QAM [facility] Stop: 03/14/19 08:59 Post Discharge Appointments Primary Care Physician Name Of Family Doctor: none Therapist Name of Therapist: Mary [facility] [employer], Wednesday 5pm, Online Activist Name of Online Activist: Denies CPT Code CPT Code 35833 (1) Depression Active/Remission status: currently active Depression Type: major depressive disorder Major depression episode severity: moderate Major depression recurrence: recurrent Qualified Code(s): F33.1 - Major depressive disorder, recurrent, moderate
[2019-02-12] MEDS ORDERED: VENLAFAXINE HCL XR 75 MG CAPXR PO SCH (09:00)
[2019-02-12] MEDS: BuPROPion SR 150 MG TABCR PO SCH (09:13)
[2019-02-12] MEDS: AMPHETAMINE ASP/SULF/DEXTRAMPH 20 MG TAB PO SCH ×3 (09:29→20:57)
[2019-02-12] MEDS ORDERED: VENLAFAXINE HCL XR 75 MG CAPXR PO ONE (13:00)
[2019-02-13] MEDS: VENLAFAXINE HCL XR 150 MG CAPXR PO SCH (09:13)
[2019-02-13] MEDS: BuPROPion SR 150 MG TABCR PO SCH (09:13)
[2019-02-13] MEDS: AMPHETAMINE ASP/SULF/DEXTRAMPH 20 MG TAB PO SCH ×2 (09:14→14:33)
--- NOTE | 2019-02-13 11:40 | Psychiatric Progress Note ---
Date of Service February 13, 2019 Impression / Recommendations Impression 38-year-old male admitted voluntarily for inpatient psychiatric treatment upon recommendation from his outpatient psychiatrist, Dr. Stewart. Pt had disclosed worsening depression with accompanied SI and plan to purchase a firearm and end his life in the parking lot. Pt was willing for medication adjustments to target low mood and low energy. Venlafaxine ER was titrated to 150 mg starting yesterday. Pt remains on home doses of bupropion 150mg and Adderall 20mg BID. Patient does endorse increased restlessness today and difficulty sleeping last evening. Continue to observe, to ensure side effects are not related to possible over activation related to his current medication regimen. Patient, himself, feels that he is at high risk of suicidal thoughts returning if unable to incorporate an adequate amount of structure into his daily routine on discharge. Considering he is ambivalent at this time about when or if to return to work, this idea is even more concerning. Given patient's long history of depression, highly lethal suicide plan, and clearly orchestrated steps to end his life - ongoing inpatient psychiatric treatment is recommended until patient can adequately contract for safety; as he remains at high risk of harm to self if discharged prematurely. (1) Suicidal ideation: 02/10/19 -The patient reports that he is continuing to experience suicidal thoughts. He does not currently have suicidal intent. However, he notes that he does not feel that he is able to contract for safety outside of the hospital and continues to require the inpatient level of care for safety. -Suicide precautions. 02/11 - SI is ongoing, though mildly improved - Remains unable to contract for safety outside of the hospital setting 02/12 - No longer "constant" SI, but does not yet feel he would be able to maintain safety outside of the hospital setting 02/13 - As above, patient concerned about return of SI and "spiraling" if level of structure on discharge is inadequate (2) Depression: 02/10/19 -The patient reports that his depression is currently "no better or and no worse" than previously. His affect, however, is somewhat brighter than it was yesterday. -The patient has been referred for group, activity, and educational treatment and services, and he is being encouraged to actively processed the various psychosocial issues that are felt to be contributing to his emotional distress. -The patient has failed to respond to a number of treatments for depression, including individual therapy and chemotherapy. He has had genetic testing at that indicates that he may respond to standard dosages of almost all antidepressant medications, and a number of these medications have already been tried at standard dosages, or to the highest tolerated dosage. He is also not responded favorably to the application of adjunctive medications to his antidepressant regimen. A review of his medication history indicates that he has not yet been tried on a selective norepinephrine reuptake inhibitor such as venlafaxine. Currently, we will cross titrate fluoxetine (Prozac) with venlafaxine (Effexor). We will also continue bupropion XL 150 mg daily as an adjunct, and Adderall 20 mg twice a day for ADHD. -I coordinated the above treatment plan with the patient, who is in agreement. I explained that 1 of the reasons for hospitalization was to make medication changes in a safe location, given his active suicidality. The patient's response was to say "I do not want to be here, but I realize that it i s necessary." -I talked to the patient today about ECT as a possible treatment, given his long-standing history of depression that has, to date, been largely unresponsive to multiple different interventions. 02/11 - Continue medication adjustments outlined above - Pt received 75mg of venlafaxine ER this morning, will continue to titrate as tolerate - Fluoxetine was discontinued after 20mg dose received this morning - Continue bupropion and Adderall as above - Family meeting with completed - Assist patient with recognition of "red flags" and development of a concrete safety plan 02/12 - Pt to receive an additional 75mg of venlafaxine this afternoon, will order 150mg dosing for tomorrow morning - Continue bupropion and Adderall as above - Pt still needs to work on developing a safety plan and ways to improve structure and routine day-to-day 02/13 - Venlafaxine titrated to 150mg yesterday. Pt endorses restlessness and difficulty sleeping last evening - continue to observe for possible over- activation with dose titration - Continue to encourage patient to plan clear ways in which he can incorporate structure and routine into his schedule (3) Thrombocytopenia: 02/10/19 -The patient's platelet count at admission was 119,000/mcL, with normal levels above 300,000/mcL. The patient does not have a known history of thrombocytopenia. This may be possibly a side effect of Prozac, and may also be a side effect of venlafaxine. -A review of systems does not reveal recent signs of bleeding or easy bruising. The plan will be to continue to monitor his platelet count periodically. Inventory Assets Strengths: Supportive . Supportive friends. (His family of origin means to be supportive, but is unable to be supportive in a way that the patient finds helpful.) Intelligence. Motivated to treatment and recovery. Needs: Recovery from treatment resistant, recurrent major depression. Resolution of suicidal ideation with plan. Ability to reliably contract for safety in the community. Risk Factors Assessment Male: Yes : Yes Do You Have Access To A Gun?: No (But the patient knows where he would be able to purchase one.) Health Problems: No Mental Health Diagnoses: Yes Substance Use Disorders: No Previous Attempt: No Family History of Suicide: No Previous Psychiatric Hospitalization: No Hopelessness: No Smoker: No Protective Factors Assessment Gnosticism Beliefs: No : Yes Responsible for Young Children: No Employed: Yes ([employer]) Stable Relationships: Yes Supportive Family: Yes (The patient's is quite supportive. The patient's family of origin, while certainly well intended, is unable to be supportive in a way that the patient finds helpful.) Good Rapport with Provider: Yes Absence of Any Risk Factors Above: No Interval History Identifying Information ASIA MADERA is a 38-year-old Male who currently lives in [place] with his and 2 teenaged stepchildren. He has a history of recurrent major depression and ADHD. The patient was admitted on 02/09/19 16:55 on a 201 voluntary agreement after he presented to my outpatient office and told me that he was having suicidal thoughts with a plan to either purchase a gun and shoot himself, or kill himself by asphyxiation with natural gas. Chief Complaint "Um, I think I am doing okay." Review of Systems Notes Constitutional: reports increased restlessness, feeling "jittery"; restless sleep last evening Cardiovascular: denied Respiratory: denied Gastrointestinal: denied Neurological: denied Psychiatric: denies symptoms other than stated above Total of at least 10 systems reviewed, pertinent positives as above and in HPI. Sleep Information Total Hours of Sleep: 6.5 Sleep Comments: pt on q-15 minute checks Meal Information Percent Meal Consumed - Breakfast: 100 Percent Meal Consumed - Lunch: 75 Percent Meal Consumed - Dinner: 50 Subjective Subjective Patient was seen & assessed and interval progress reviewed with Treatment Team. Staff reports the patient continues to participate in group and recreational programming. There is no reported change in affect since admission. Patient participated in a family meeting with his over the weekend, and could not verbalize a desire to continue living. Patient was seen today to assess progr ess since admission. He states that he is "doing okay." The patient does endorse a feeling of "a little restlessness, kind of jittery." Patient states he did not sleep well last evening, "of all my bad nights of sleep this is been the worst." Patient has been set up with aftercare; however, has been encouraged to develop a plan/routine after discharge that would allow more structure to his day. Patient reports he is in the "middle-er stages" of this plan. Patient does not feel that there has been a significant change in his mood; however, he does feel that his suicidal ideation has improved. Patient states his thoughts are "most prevalent when I am alone with my thoughts." Patient reports ongoing concern about the idea of returning home, as most of the day he has left, "alone with my thoughts without any structure." Patient remains concerned that he will "spiral" shortly after discharge without this necessary structure, as he states he will likely "be dragged back down to old habits." Patient has not been able to verbalize any internal protective factors, citing reasons to live as only "I know I will hurt other people. That is probably the biggest reason." Patient denies any obvious side effects from medication adjustments, however his reported restlessness and difficulty sleeping was discussed as it relates to possible side effects from titration of venlafaxine. Patient denies other needs or concerns at this time. Physical Exam Psychiatric Orientation: alert, oriented x 3 and cooperative Apperance: appropriately dressed (Casually in a T-shirt and pajama bottoms) and appropriately groomed Well-groomed, wearing corrective lenses Eye Contact: good eye contact Motor Behavior: steady gait and station and no abnormal motor movements Patient appearing calm and relaxed; however, and reports restlessness and a "jittery feeling" Speech: normal rate/rhythm/volume of speech Affect: + blunted affect Mood: + depressed mood ("Okay" and "my mood is not very different") Thought Process: goal directed thought process and clear/coherent thought process Thought Content: reality based without delusions and + hopelessness (Still does not believe his condition will improve) Suicidal Thoughts: + reports suicidal thoughts (Intermittent suicidal thoughts, most prevalent when patient is not engaged in activity) Homicidal Thoughts: denies homicidal thoughts Hallucinations: no auditory hallucinations and no visual hallucinations Cognition: remote memory grossly intact, attention grossly intact and language grossly intact Estimated Intelligence: consistent with education level Insight: + fair insight Judgement: + fair judgement Vital Signs (Past 24 Hours) Last Vital Signs Temp 36.6 C 02/13/19 06:51 Pulse 93 H 02/13/19 06:51 Resp 16 02/13/19 06:51 BP 130/85 02/13/19 06:51 Pulse Ox 98 02/09/19 13:59 Results & Data Current Inpatient Medications Current Inpatient Medications: Current Inpatient Medications Acetaminophen (Tylenol) 650 mg PO Q4H PRN PRN Reason: Headache or Minor Fever Stop: 03/11/19 16:28 Al Hydrox/Mg Hydrox/Simethicone (Maalox) 30 ml PO Q4H PRN PRN Reason: GI Upset Stop: 03/11/19 16:28 Amphetamine/Dextroamphetamine (Adderall) 20 mg PO BID@0900,1400 [facility] Stop: 02/26/19 09:14 Last Admin: 02/13/19 09:14 Dose: 20 mg Documented by: Bismuth Subsalicylate (Kaopectate) 15 ml PO PRN PRN PRN Reason: Loose Stool Stop: 03/11/19 16:28 Bupropion HCl (Wellbutrin-Sr) 150 mg PO QAM [facility] Stop: 03/12/19 08:59 Last Admin: 02/13/19 09:13 Dose: 150 mg Documented by: Hydroxyzine HCl (Vistaril) 25 mg PO Q4H PRN PRN Reason: Anxiety Stop: 03/11/19 16:28 Hydroxyzine HCl (Vistaril) 50 mg PO HSZ PRN PRN Reason: Insomnia Stop: 03/11/19 16:28 Magnesium Hydroxide (Milk Of Magnesia) 30 ml PO DAILY PRN PRN Reason: Heartburn Stop: 03/11/19 16:28 Sodium Chloride ([place] Nasal) 1 - 2 sprays NA PRN PRN PRN Reason: Nasal Dryness/Congestion Stop: 03/11/19 16:28 Venlafaxine HCl (Effexor Extended Release) 150 mg PO QAM [facility] Stop: 03/15/19 08:59 Last Admin: 02/13/19 09:13 Dose: 150 mg Documented by: Mental Health & Subst Abuse Tx Therapist Name of Therapist: [employer] [facility] [facility], Wednesday 5pm, Tax Audit Manager Name of Tax Audit Manager: Denies Post Discharge Appointments Primary Care Physician Name Of Family Doctor: none CPT Code CPT Code 40799 (1) Depression Active/Remission status: currently active Depression Type: major depressive disorder Major depression episode severity: moderate Major depression recurrence: recurrent Qualified Code(s): F33.1 - Major depressive disorder, recurrent, moderate
[2019-02-13 16:21] LABS: Amphetamine Urine, Confirm 9380 NG/ML (CUTOFF=250); Marijuana Quant, GCMS Urine 1590 NG/ML (CUTOFF=5); Methamphetamine, Ur Confirm NEGATIVE NG/ML (CUTOFF=250)
[2019-02-14] MEDS: AMPHETAMINE ASP/SULF/DEXTRAMPH 20 MG TAB PO SCH (08:52)
[2019-02-14] MEDS: VENLAFAXINE HCL XR 150 MG CAPXR PO SCH (08:52)
[2019-02-14] MEDS: BuPROPion SR 150 MG TABCR PO SCH (08:53)
--- NOTE | 2019-02-14 10:22 | Discharge Summary ---
Date of Service February 14, 2019 History of Present Illness The patient is a 38-year-old man with a long history of major depression, moderate to severe, without psychotic features and with only partial recovery between episodes. He has been followed by the undersigned outpatient therapy for several years and his depression has been very poorly responsive to a number of psychiatric medications which have included sertraline, fluoxetine, bupropion, fluoxetine, aripiprazole (as an adjunct) and, more recently, Adderall because of the patient's long-standing history of difficulty focusing, concentrating, avoiding unnecessary distraction, and tasks. The symptoms reportedly predated and have occurred independent of his symptoms of depression. In addition, the patient has been offered transcranial magnetic stimulation, but has declined it because of the considerable time commitment. 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 As the patient, himself, puts it, it is not clear if the patient's dissatisfaction with his life and his "quiet desperation" is a function of his depression, or if his depression is largely attributable to his general dissatisfaction with the circumstances in which he finds himself. The patient reportedly was fairly close to completing an undergraduate degree when he dropped out of college, but has not been motivated to return to college and finished his degree. He is dissatisfied with his job, but has thus far failed to apply for other jobs, nor has he been able to tell me that he has given serious thought to what other jobs he might prefer or consider. He often has a fantasy of leaving his and two adolescent stepchildren and moving into a "bachelor's apartment" which would allow him to return home from work and be solitary and free of additional responsibilities. Recently, the patient requested a medical excuse for a period of 2 weeks during which she was to have had a trial separation from his (without necessarily telling her that that was his intent). During the proposed separation, he was either to have visited his parents and a brother in [place], or visit friends and [place], and, again, his goal had been to see how he felt when removed from the strains of his home life and his job. He decided against visiting his parents because they tend to be hyper presybeterian and, each time he tries to tell them about how he is feeling they responded by advising him to find solutions through the [facility]. In the end, he also decided not to visit his friends and, instead, spent the time at home, largely in bed and idle. Towards of the end of the 2 weeks, he was aware that he was feeling "no better and no worse," but also noted that what had previously been fleeting thoughts of suicide had become progressively more intense and intrusive. The final 2 days of his leave from work, he began to seriously contemplate suicide, and reported them to me, as above, shortly thereafter at the time of his previously scheduled outpatient appointment. He initially told me that his suicidal thoughts included thoughts of going to [employer], purchasing a rifle, and shooting himself in the [employer] parking lot --although he added that he would not actually shoot himself in the parking lot because he understood that that might have a traumatic effect on other people. He is also considered killing himself with natural gas. At the same time, the patient acknowledged some ambivalence regarding actual suicidal intent. However, of note, today he tells me that after he arrived in the emergency room yesterday afternoon (from my office) he said that "in a way" he regretted that he did not take the opportunity to simply kill himself without coming to the hospital, although, again, he stepped back from that statement and said "but I probably would have done that. I do want to try to get help and get better. Physical Exam Psychiatric Orientation: alert, oriented x 3 and cooperative Apperance: appropriately dressed (Casually in a T-shirt and pajama bottoms) and appropriately groomed Well groomed with adequate hygiene, wearing corrective lenses Eye Contact: good eye contact Motor Behavior: steady gait and station and no abnormal motor movements Speech: normal rate/rhythm/volume of speech Affect: + blunted affect; no anxious affect Mood: + depressed mood and + anxious mood "Okay, like I am back to baseline but more confident" and "some anxiety about what happens when I go home, but nothing big" Thought Process: goal directed thought process, linear/logical thought process and clear/coherent thought process Thought Content: reality based without delusions; no hopelessness and no worthlessness Suicidal Thoughts: denies suicidal plan and denies suicidal intent; + reports suicidal thoughts (SI has been chronic, once again is passive and intermittent, patient denies active suicidality) Homicidal Thoughts: denies homicidal thoughts Hallucinations: no auditory hallucinations and no visual hallucinations Cognition: remote memory grossly intact, attention grossly intact and language grossly intact Estimated Intelligence: consistent with education level Insight: + fair insight Judgement: + fair judgement Vital Signs (Past 24 Hours) Last Vital Signs Temp 36.6 C 02/14/19 06:46 Pulse 94 H 02/14/19 06:46 Resp 16 02/14/19 06:46 BP 148/93 H 02/14/19 06:46 Pulse Ox 98 02/09/19 13:59 Principal Diagnosis Major Depressive disorder, recurrent, severe; generalized anxiety disorder Psychiatric Data 38-year-old male admitted voluntarily for inpatient psychiatric treatment on 02/09/2019 due to worsening depression and increased suicidal thoughts with plan to obtain a firearm and shoot himself. Patient had disclosed these thoughts to his outpatient psychiatrist, who recommended inpatient psychiatric treatment u ntil able to contract for safety. Plan for medication adjustments was discussed upon admission, including plan to cross taper from fluoxetine to venlafaxine in order to target mood and ideally improve energy and motivation. Patient was continued on his home doses of bupropion 150 mg daily and Adderall 20 mg twice daily as prescribed. Over the course of the patient's admission, his dose of venlafaxine was titrated to 150 mg daily. Patient did endorse mild restlessness with this dose adjustment, and was encouraged to monitor for any symptoms of over activation with his current medication regimen. While hospitalized, the patient participated in group and recreational programming, and was supportive of peers. He has been willing to participate in a family meeting with his , who is supportive and interested in assisting the patient in his treatment. At baseline, patient endorses passive suicidality with persistently low mood. Patient feels that he has returned to "baseline", but does admit to an increased confidence that the symptoms will change. At time of discharge, patient is able to contract for safety and feels that he is better equipped to manage anxiety and negative thoughts with the coping strategies he has developed during his admission. Contact was made with the patient's who feels comfortable with him returning home and had denied any safety concerns. Patient is reporting significant reduction in suicidality, which is now passive and lacks intent. He is future oriented and conversation, and has been able to discuss various coping strategies and plans to add increase structure to his daily routine. Patient is verbalizing request for discharge, feeling that he is ready to return home. Patient verbalizes a willingness to utilize the crisis line and other mental health services if necessary, and feels comfortable returning to the emergency room with any acute concerns in the future. Patient will be returning to his established psychiatric prescriber and therapist on discharge, both of which have been rescheduled for follow-up in a timely manner after discharge. At this time, patient is felt to not be at acute risk of harm to self, and seems appropriate for discharge to the outpatient setting with ongoing psychiatric follow-up. Discharge plan was discussed with the patient who verbalized understanding and is in agreement with recommendations. Day of Discharge Assessment Patient's case was reviewed and discussed during report with nursing and social work. Staff reports the patient is currently scheduled for a therapy appointment this afternoon, which patient is hopeful to attend. Patient was seen today to assess readiness for discharge. The patient reports feeling as though he has improved over the course of his admission. We reviewed that intermittent passive suicidal ideation has been present for several years, as has his low mood. Patient does feel that these have improved during his admission and believes himself to be "back to normal." We discussed that ideally he will notice ongoing improvement with medication adjustments made and ongoing therapeutic interventions on an outpatient basis. Patient does feel as though he has more "confidence" and his ability to process his suicidal ideation and redirect the thoughts. The patient states "I really feel like I am ready, I do not want to be a victim of my thoughts anymore." The patient states that he has spoken with his who feels comfortable with him returning home and has not verbalized any additional safety concerns to him. Patient denies any significant side effects related to medication adjustments. We did review some increased restlessness he had reported yesterday, which seems to have improved today. Patient was encouraged to continue to discuss any concerns with his outpatient prescriber, or call the unit if necessary in the interim. At this time, patient does admit it to some anxiety related to the idea of going home, but does not feel that it would impair his ability to be successful on an outpatient basis. Patient is requesting discharge today, as he would like to be able to attend his scheduled therapy appointment this afternoon. Based on review of patient's case and their current presentation, risk of harm to self or others is no longer perceived to be acute. Management of symptoms on an outpatient basis seems the most appropriate and least restrictive setting. Pt seems appropriate for discharge with recommendation for consistent follow-up with outpatient psychiatric prescriber and therapist. Pt verbalized understanding of discharge plan reviewed and is agreeable with plan to be discharged home today. ROS: Constitutional: denied Cardiovascular: denied Respiratory: denied Gastrointestinal: reports mild GI upset yesterday, improved today Neurological: denied Psychiatric: denies symptoms other than stated above Total of at least 10 systems reviewed, pertinent positives as above and in HPI. Transition of Care Transition Of Care Record: was reviewed with the patient Advance Directives Advance Directives Information Provided: Yes Advance Directives: No Mental Health Advance Directive: No Advance Directives on File: No Living Will: No Power of Commissioning Engineer: No Advance Directives Reason:: Declines as Mental Health Visit. Risk Factors Assessment Presenting risk factors reviewed on discharge. Precipitating stressors mitigated by: admission for inpatient psychiatric observation and treatment, appropriate adjustments to medications to target symptoms, attendance of therapeutic treatment groups, development of healthy and effective coping strategies, involvement of outpatient supports, completion of a safety plan, confirmation of extra medications being secured, confirmation that there are no guns/weapons in the home, discussion regarding substance abuse and effects on mental health diagnoses, and education on diagnoses. Pt has demonstrated improvement in condition with regard to mood returning to a comfortable baseline, SI becoming less prominent without intent to end life, and communication with about current mood concerns. At this time, patient is requesting discharge and is no longer considered to be at acute risk of harm to himself or others. Pt will be discharged with recommendation for ongoing outpatient psychiatric treatment. Pt is at increased risk of harm to self or others when compared to the general population and there are several risk factors which are not likely to be mitigated in an inpatient treatment setting. Pt's depression and suicidality are chronic and persistent at baseline. At time of discharge, he feels these symptoms are manageable and reports increased confidence with regard to communicating needs and coping with anxiety and negative thoughts. Presence of these symptoms does put him at increased risk of suicide, but he verbalizes willingness to utilize supports and the mental health community should symptoms return to their previous level of severity. Male: Yes : Yes Do You Have Access To A Gun?: No (But the patient knows where he would be able to purchase one.) Health Problems: No Mental Health Diagnoses: Yes Substance Use Disorders: No Previous Attempt: No Family History of Suicide: No Previous Psychiatric Hospitalization: No Hopelessness: No Smoker: No Protective Factors Assessment Restorationism Beliefs: No : Yes Responsible for Young Children: No Employed: Yes ([employer]) Stable Relationships: Yes Supportive Family: Yes (The patient's is quite supportive. The patient's family of origin, while certainly well intended, is unable to be supportive in a way that the patient finds helpful.) Good Rapport with Provider: Yes Absence of Any Risk Factors Above: No Tobacco Cessation at Discharge Tobacco Cessation Medication Prescribed at Discharge: Not Applicable/Non-Smoker Total Time Total Time Spent: Greater Than 30 Minutes Total Time Includes: Examination of the patient, Discharge Planning, Medication Reconciliation and Communication with other providers Discharge Data Lab Results 02/09/19 02/09/19 02/09/19 12:41 12:41 12:41 WBC 6.30 RBC 4.94 Hgb 15.2 Hct 42.9 MCV 86.8 MCH 30.8 MCHC 35.4 RDW Std Deviation 39.7 RDW Coeff of Gopi 12.4 Plt Count 119 L MPV 10.7 H Immature Gran % (Auto) 1.0 Neut % (Auto) 67.7 Lymph % (Auto) 21.9 Crockett % (Auto) 7.3 Eos % (Auto) 1.6 Baso % (Auto) 0.5 Immature Gran # (Auto) 0.06 H Neut # (Auto) 4.27 Lymph # (Auto) 1.38 Crockett # (Auto) 0.46 Eos # (Auto) 0.10 Baso # (Auto) 0.03 Sodium 140 Potassium 4.3 Chloride 106 Carbon Dioxide 27 Anion Gap 7.0 BUN 17 Creatinine 1.14 Est Cr Clr Drug Dosing 86.0 Est GFR ( Amer) 93.4 Est GFR (Non-Af Amer) 80.6 BUN/Creatinine Ratio 14.6 Glucose 90 Calcium 9.3 Total Bilirubin 0.5 AST 14 L ALT 25 Alkaline Phosphatase 95 Total Protein 7.4 Albumin 3.9 Globulin 3.5 Albumin/Globulin Ratio 1.1 TSH 0.674 Urine Color Urine Appearance Urine pH Ur Specific Parma Urine Protein Urine Glucose (UA) Urine Ketones Urine Blood Urine Nitrite Urine Bilirubin Urine Urobilinogen Ur Leukocyte Esterase Salicylates < 1.7 L Urine Opiates Screen Ur Methadone, Qual Acetaminophen < 2 L Urine Barbiturates Ur Phencyclidine (PCP) U Amphetamines Confirm U Amphetamin/Meth Scrn U Methamphetamin Confrm MDMA (Ecstasy) Screen U Benzodiazepines Scrn Ur Cocaine Metabolite U Marijuana (THC) Screen U Marijuana THC Carboxy Ethyl Alcohol mg/dL 02/09/19 02/09/19 02/09/19 12:41 13:15 13:15 WBC RBC Hgb Hct MCV MCH MCHC RDW Std Deviation RDW Coeff of Gopi Plt Count MPV Immature Gran % (Auto) Neut % (Auto) Lymph % (Auto) Crockett % (Auto) Eos % (Auto) Baso % (Auto) Immature Gran # (Auto) Neut # (Auto) Lymph # (Auto) Crockett # (Auto) Eos # (Auto) Baso # (Auto) Sodium Potassium Chloride Carbon Dioxide Anion Gap BUN Creatinine Est Cr Clr Drug Dosing Est GFR ( Amer) Est GFR (Non-Af Amer) BUN/Creatinine Ratio Glucose Calcium Total Bilirubin AST ALT Alkaline Phosphatase Total Protein Albumin Globulin Albumin/Globulin Ratio TSH Urine Color Yellow Urine Appearance Clear Urine pH 5.5 Ur Specific Parma 1.023 Urine Protein Negative Urine Glucose (UA) Negative Urine Ketones Negative Urine Blood Negative Urine Nitrite Negative Urine Bilirubin Negative Urine Urobilinogen Negative Ur Leukocyte Esterase Negative Salicylates Urine Opiates Screen Neg Ur Methadone, Qual Neg Acetaminophen Urine Barbiturates Neg Ur Phencyclidine (PCP) Neg U Amphetamines Confirm U Amphetamin/Meth Scrn Pos H U Methamphetamin Confrm MDMA (Ecstasy) Screen Pos H U Benzodiazepines Scrn Neg Ur Cocaine Metabolite Neg U Marijuana (THC) Screen Pos H U Marijuana THC Carboxy Ethyl Alcohol mg/dL < 3.0 02/09/19 13:15 WBC RBC Hgb Hct MCV MCH MCHC RDW Std Deviation RDW Coeff of Gopi Plt Count MPV Immature Gran % (Auto) Neut % (Auto) Lymph % (Auto) Crockett % (Auto) Eos % (Auto) Baso % (Auto) Immature Gran # (Auto) Neut # (Auto) Lymph # (Auto) Crockett # (Auto) Eos # (Auto) Baso # (Auto) Sodium Potassium Chloride Carbon Dioxide Anion Gap BUN Creatinine Est Cr Clr Drug Dosing Est GFR ( Amer) Est GFR (Non-Af Amer) BUN/Creatinine Ratio Glucose Calcium Total Bilirubin AST ALT Alkaline Phosphatase Total Protein Albumin Globulin Albumin/Globulin Ratio TSH Urine Color Urine Appearance Urine pH Ur Specific [place]ma Urine Protein Urine Glucose (UA) Urine Ketones Urine Blood Urine Nitrite Urine Bilirubin Urine Urobilinogen Ur Leukocyte Esterase Salicylates Urine Opiates Screen Ur Methadone, Qual Acetaminophen Urine Barbiturates Ur Phencyclidine (PCP) U Amphetamines Confirm 9380 A U Amphetamin/Meth Scrn U Methamphetamin Confrm NEGATIVE MDMA (Ecstasy) Screen U Benzodiazepines Scrn Ur Cocaine Metabolite U Marijuana (THC) Screen U Marijuana THC Carboxy 1590 A Ethyl Alcohol mg/dL Hospital Course (1) Suicidal ideation: 02/10/19 -The patient reports that he is continuing to experience suicidal thoughts. He does not currently have suicidal intent. However, he notes that he does not feel that he is able to contract for safety outside of the hospital and continues to require the inpatient level of care for safety. -Suicide precautions. 02/11 - SI is ongoing, though mildly improved - Remains unable to contract for safety outside of the hospital setting 02/12 - No longer "constant" SI, but does not yet feel he would be able to maintain safety outside of the hospital setting 02/13 - As above, patient concerned about return of SI and "spiraling" if level of structure on discharge is inadequate (2) Depression: 02/10/19 -The patient reports that his depression is currently "no better or and no worse" than previously. His affect, however, is somewhat brighter than it was yesterday. -The patient has been referred for group, activity, and educational treatment and services, and he is being encouraged to actively processed the various psychosocial issues that are felt to be contributing to his emotional distress. -The patient has failed to respond to a number of treatments for depression, including individual therapy and chemotherapy. He has had genetic testing at that indicates that he may respond to standard dosages of almost all antidepressant medications, and a number of these medications have already been tried at standard dosages, or to the highest tolerated dosage. He is also not responded favorably to the application of adjunctive medications to his antidepressant regimen. A review of his medication history indicates that he has not yet been tried on a selective norepinephrine reuptake inhibitor such as venlafaxine. Currently, we will cross titrate fluoxetine (Prozac) with venlafaxine (Effexor). We will also continue bupropion XL 150 mg daily as an a djunct, and Adderall 20 mg twice a day for ADHD. -I coordinated the above treatment plan with the patient, who is in agreement. I explained that 1 of the reasons for hospitalization was to make medication changes in a safe location, given his active suicidality. The patient's response was to say "I do not want to be here, but I realize that it is necessary." -I talked to the patient today about ECT as a possible treatment, given his long-standing history of depression that has, to date, been largely unresponsive to multiple different interventions. 02/11 - Continue medication adjustments outlined above - Pt received 75mg of venlafaxine ER this morning, will continue to titrate as tolerate - Fluoxetine was discontinued after 20mg dose received this morning - Continue bupropion and Adderall as above - Family meeting with completed - Assist patient with recognition of "red flags" and development of a concrete safety plan 02/12 - Pt to receive an additional 75mg of venlafaxine this afternoon, will order 150mg dosing for tomorrow morning - Continue bupropion and Adderall as above - Pt still needs to work on developing a safety plan and ways to improve structure and routine day-to-day 02/13 - Venlafaxine titrated to 150mg yesterday. Pt endorses restlessness and difficulty sleeping last evening - continue to observe for possible over- activation with dose titration - Continue to encourage patient to plan clear ways in which he can incorporate structure and routine into his schedule (3) Thrombocytopenia: 02/10/19 -The patient's platelet count at admission was 119,000/mcL, with normal levels above 300,000/mcL. The patient does not have a known history of thrombocytopenia. This may be possibly a side effect of Prozac, and may also be a side effect of venlafaxine. -A review of systems does not reveal recent signs of bleeding or easy bruising. The plan will be to continue to monitor his platelet count periodical ly. Post Discharge Appointments Primary Care Physician Name Of Family Doctor: none Smoking Cessation Counseling Tobacco Cessation Medication Prescribed at Discharge: Not Applicable/Non-Smoker Contact Information Discharge Discharge Address: [facility] [address] [place] [address] Discharge Plan Discharge Items Patient Disposition: Home - Self-Care Reason For Visit: MAJOR DEPRESSION Discharge Diagnosis: Depression Condition: Fair Discharge Goals: Decrease discomfort, Improve disease control, Improve function, Increase independence, Learn about illness and Therapeutic intervention Activity: Resume your previous activity Non-emergency contact: Primary Care Provider, Psychiatrist and Therapist Call non-emergency contact if: you have any medication questions and your symptoms worsen Follow-up/Referrals: PCP,NO [Primary Care Provider] - Diet: Regular Addtl Provider Instructions: SPECIAL CARE INSTRUCTIONS: 1. Follow through with your scheduled aftercare appointments. If unable to keep an appointment, please call to reschedule. 2. Take your medication only as prescribed. Medication should not be changed or stopped without the approval of your doctor. In the event of worsening symptoms or concerns about side effects, contact your doctor immediately. 3. Utilize new healthy coping skills, anger management skills, and stress management skills learned during your hospitalization. Journal feelings and process them with a support person. Identify stressors or situations that may result in relapse, deterioration or inappropriate behaviors and develop a plan to deal with those issues. 4. If your coping skills are ineffective and you are in crisis, contact your outpatient providers for direction. If unable to reach your providers, please call the CAN HELP LINE AT or go to the closest Emergency Room. 5. Avoid alcohol and un-prescribed drugs. 6. You have been provided with the Mental Health Advance Directives Pamphlet for your review. AFTERCARE APPOINTMENTS: * Please call your insurance company prior to your scheduled appointment to confirm your aftercare providers are covered. Take your insurance information to your appointments. WHO TO CALL AND WHEN: Medical Emergencies: For questions or emergencies related to your hospital stay, please contact the Inpatient Behavioral Health Unit at [phone]. A sole [facility] is on-call 08/03 [facility] for emergencies At any time you feel your situation is an emergency, you may also call 911 immediately. Your Doctors Instructions noted above were prepared by provider Meghana Caldera PA-C. Prescriptions: New venlafaxine 150 mg Capsule,Extended Release 24hr 150 mg PO QAM 30 Days Qty: 30 RF: 0 Continued dextroamphetamine-amphetamine [Adderall] 20 mg Tablet 20 mg PO BID RF: 0 bupropion HCl 150 mg Tablet Sustained-Release 12 Hr 150 mg PO DAILY RF: 0 Discontinued fluoxetine 60 mg Tablet 60 mg PO DAILY RF: 0 Stand-Alone Forms: [facility] Discharge Orders: Discharge Order (Routine); Ordered 02/14/19 Ordered By: Meghana Caldera Admission Data Admit Date/Time: 02/09/19 16:55 Attending Provider: Dash Stewart Admit Provider: Paulina Downey Primary Care Provider: PCP,NO Service: Psychiatry Other Interventions: Discharge Summary Assessment (RN) Last Done: 02/14/19 11:15 PSY Interdisciplinary Discharge Planning Last Done: 02/14/19 11:10 Pending Studies at Discharge: No DC Date/Time DO NOT enter until pt leaves facility: 02/14/19 11:37
== END 2019-02-14 11:37 | disposition home or self-care (01) | DRG 885 ==
LOC: ED 11:20 → 3S 16:27